=== PATIENT | male | born 1975 | race Caucasian/White ===

== ENCOUNTER 2017-05-25 09:13 | Emergency (ER) | payer BC, OTHER ==
[~2017-05-25] VITALS: Ht 182.9 cm; Wt 113.1 kg
[~2017-05-25 09:13] MED LIST: INDO-22 PO; LRT5 PO; OXYC-57 PO; ZFRODT4 SL
[2017-05-25 09:21] VITALS: TEMP 37.4; Ht 182.9 cm; Wt 113.1 kg
--- NOTE | 2017-05-25 09:38 | EMERGENCY ROOM VISIT NOTE ---
History Report prepared by Alicia: Sydnie Murphy Under the Supervision of: Dr. Nick Jack M.D. First contact with patient: 09:27 Chief Complaint: FLANK PAIN Stated Complaint: PAIN LOWER LEFT ABDOMEN AND LOWER NECK History of Present Illness The patient is a 42 year old male who presents to the Emergency Room with complaints of intermittent left lower flank pain beginning last night. The patient states that the pain also radiates to his lower back. The patient states that he had a kidney stone 10 years ago, and was having similar pain in the summer as well as trouble urinating. He states that he went to a urologist at [facility], and was told he had a cyst on his prostate. The patient denies burning with urination and he also denies blood in his urine. The patient states that his mother had diverticulitis. Source of History: patient Onset: last night Position: other (left-flank) Timing: intermittent Associated Symptoms: + back pain (lower), No urinary symptoms Review of Systems All systems have been listed, reviewed, and are negative other than those previously mentioned. Please see Additional Medical History Sheet. Past Medical & Surgical Medical Problems: (1) Prostatitis Family History Cancer Diabetes mellitus FH: diverticulitis Heart disease Hypertension Social History Smoking Status: Never Smoker Smokeless Tobacco Use: No Alcohol Use: occasionally Marital Status: Housing Status: lives with significant other Occupation Status: employed Current/Historical Medications Scheduled Allopurinol (Zyloprim), 300 MG PO QAM Ciprofloxacin Hcl (Cipro), 1 TAB PO BID Metronidazole (Flagyl), 500 MG PO TID Allergies Coded Allergies: No Known Allergies (Unverified , 05/25/17) Physical Exam Vital Signs Date Time Temp Pulse Resp B/P (MAP) Pulse Ox O2 Delivery O2 Flow Rate FiO2 05/25/17 12:36 65 18 143/92 98 Room Air 05/25/17 10:54 60 16 135/82 98 05/25/17 09:21 37.4 66 18 142/85 97 Room Air Physical Exam GENERAL: Patient awake, alert, oriented x 3. Patient follows commands. Patient does not appear toxic. Patient is adequately hydrated and well- nourished. SKIN: No erythema, pallor, cyanosis or rash HEENT: Normal head, pupils equal, reactive to light and accommodation. Ears normal. Oral cavity and posterior pharynx appear normal. Neck: Without adenopathy, no neck vein distention. LUNGS: Clear to auscultation. No wheezes, no rales, no rhonchi. HEART: No murmurs. No gallops. No rubs ABDOMEN: Marked tenderness in left lower quadrant with guarding, but no rebound. No masses, no hepatomegaly or splenomegaly. No inguinal hernia. EXTREMITIES: No signs of trauma or infection. NEUROLOGIC: Cranial nerves II-XII within normal limits. No gross motor sensory function deficits. Medical Decision & Procedures ER Provider Diagnostic Interpretation: Radiology results as stated below per my review and radiologist interpretation: ABD/PELVIS IV AND ORAL CONT CLINICAL HISTORY: 42 years-old Male presenting with LLQ pain. TECHNIQUE: Multidetector CT of the abdomen and pelvis was performed after the administration of oral and intravenous contrast. IV contrast: 120 mL of Optiray 320. A dose lowering technique was used consistent with the principles of ALARA (as low as reasonably achievable). COMPARISON: 09/23/2008. CT DOSE (mGy.cm): The estimated cumulative dose is 990.67 mGy.cm. FINDINGS: Technology Program Manager topogram: Unremarkable. Lung bases: Solid 3 mm nodule at the left lower lobe (series 3 image 72). Normal heart size. No pericardial or pleural effusion. Liver: Normal morphology. Hyperenhancing subcentimeter focus in the medial left hepatic lobe likely flash filling hemangioma (series 3 image 86) no other focal lesion. Patent hepatic vasculature. Biliary: No intrahepatic or extrahepatic biliary ductal dilatation. Normal gallbladder. Pancreas: Normal. Spleen: Normal. Adrenal glands: Normal. Kidneys and ureters: Normal. No hydronephrosis. Bladder: Incompletely evaluated secondary to underdistention. Pelvic organs: Prostate and seminal vesicles normal. Bowel: Focal wall thickening of the proximal sigmoid colon associated with diverticulosis and pericolonic fat stranding consistent with diverticulitis. Adjacent peritoneal thickening with small amount of retroperitoneal fluid extending to the extraperitoneal left hemipelvis, likely reactive. No focal fluid collection. No bowel obstruction. Peritoneal cavity: Trace free fluid in the left lower quadrant. No free intraperitoneal gas. Small retroperitoneal fluid as mentioned above. Lymph nodes: View scattered subcentimeter iliac lymph nodes bilaterally, likely reactive. No pathologically enlarged lymph nodes by CT size criteria. Vasculature: Aorta and IVC patent and normal in caliber. Abdominal wall: Small fat-containing umbilical hernia. Musculoskeletal: Normal. IMPRESSION: 1. Findings consistent with acute uncomplicated diverticulitis of the proximal sigmoid colon. No abscess or CT evidence of gregorio perforation. 2. Solid 3 mm left lower lobe pulmonary nodule. Follow-up per Leti Society 2017 recommendations below. Please refer to below summary of Fleischner Society 2017 recommendations for follow-up of incidental CT nodules (H Ce et al. Guidelines for management of incidental pulmonary nodules detected on CT images: From the Fleischner Society 2017. Radiology 2017; 284: 228-243.) SOLID NODULES Single nodule; size < 6 mm * Low risk patients: No routine follow-up * High risk patients: Optional CT at 12 months Single nodule; size 6-8 mm * Low risk patients: CT at 6-12 months, then consider CT at 18-24 months * High risk patients: CT at 6-12 months, then at 18-24 months Single nodule; size > 8 mm * Either low or high risk patients: Considered CT at 3 months, PET/CT, or tissue sampling Multiple nodules; size < 6 mm * Low risk patients: No routine follow up * High risk patients: Optional CT at 12 months Multiple nodules; size 6-8 mm * Low risk patients: CT at 3-6 months, then consider CT at 18-24 months * High risk patients: CT at 3-6 months, then at 18-24 months Multiple nodules; size > 8 mm * Low risk patients: CT at 3-6 months, then consider at 18-24 months * High risk patients: CT at 3-6 months, then at 18-24 months Note: These guidelines apply to incidental nodules. These guidelines do not apply to patients younger than 35 years, immunocompromised patients, or patients with cancer. * Low risk patients: Minimal or absent history of smoking and/or other known risk factors * High risk patients: History of smoking, exposure to other carcinogens, emphysema, fibrosis, upper lobe location, family history of lung cancer, etc. * If a nodule up to 8 mm is partly solid or is ground glass, further follow-up is required after 24 months to exclude possible slow growing adenocarcinoma. SUBSOLID NODULES Single ground-glass nodule * Nodule size < 6 mm: No routine follow-up * Nodule size > or = 6 mm: CT at 6-12 months to confirm persistence, then CT every 2 years until 5 years Single part-solid nodule * Nodule size < 6 mm: No routine follow-up * Nodules size > or = 6 mm: CT at 3-6 months to confirm persistence. If unchanged and solid component remains < 6 mm, annual CT should be performed for 5 years Multiple nodules * Nodule size < 6 mm: CT at 3-6 months. If stable, consider CT at 2 and 4 years. * Nodules size > or = 6 mm: CT at 3-6 months. Subsequent management based on the most suspicious nodule(s) Electronically signed by: Santiago Chou M.D. 05/25/2017 1:04 PM Dictated Date/Time: 05/25/2017 12:57 PM Laboratory Results 05/25/17 09:30 Red Blood Count 5.42, Mean Corpuscular Volume 83.8, Mean Corpuscular Hemoglobin 29.0, Mean Corpuscular Hemoglobin Concent 34.6, Mean Platelet Volume 10.1, Neutrophils (%) (Auto) 77.3, Lymphocytes (%) (Auto) 14.1, Monocytes (%) (Auto) 7.3, Eosinophils (%) (Auto) 0.8, Basophils (%) (Auto) 0.2, Neutrophils # (Auto) 10.51, Lymphocytes # (Auto) 1.92, Monocytes # (Auto) 1.00, Eosinophils # (Auto) 0.11, Basophils # (Auto) 0.03 05/25/17 09:30 Test 05/25/17 09:30 White Blood Count 13.61 K/uL (4.8-10.8) Red Blood Count 5.42 M/uL (4.7-6.1) Hemoglobin 15.7 g/dL (14.0-18.0) Hematocrit 45.4 % (42-52) Mean Corpuscular Volume 83.8 fL (80-100) Mean Corpuscular Hemoglobin 29.0 pg (25-34) Mean Corpuscular Hemoglobin Concent 34.6 g/dl (32-36) Platelet Count 265 K/uL (130-400) Mean Platelet Volume 10.1 fL (7.4-10.4) Neutrophils (%) (Auto) 77.3 % Lymphocytes (%) (Auto) 14.1 % Monocytes (%) (Auto) 7.3 % Eosinophils (%) (Auto) 0.8 % Basophils (%) (Auto) 0.2 % Neutrophils # (Auto) 10.51 K/uL (1.4-6.5) Lymphocytes # (Auto) 1.92 K/uL (1.2-3.4) Monocytes # (Auto) 1.00 K/uL (0.11-0.59) Eosinophils # (Auto) 0.11 K/uL (0-0.5) Basophils # (Auto) 0.03 K/uL (0-0.2) RDW Standard Deviation 41.0 fL (36.4-46.3) RDW Coefficient of Variation 13.6 % (11.5-14.5) Immature Granulocyte % (Auto) 0.3 % Immature Granulocyte # (Auto) 0.04 K/uL (0.00-0.02) Urine Color YELLOW Urine Appearance CLEAR (CLEAR) Urine pH 5.0 (4.5-7.5) Urine Specific [place] 1.021 (1.000-1.030) Urine Protein NEG (NEG) Urine Glucose (UA) NEG (NEG) Urine Ketones NEG (NEG) Urine Occult Blood NEG (NEG) Urine Nitrite NEG (NEG) Urine Bilirubin NEG (NEG) Urine Urobilinogen NEG (NEG) Urine Leukocyte Esterase NEG (NEG) Anion Gap 7.0 mmol/L (3-11) Est Creatinine Clear Calc Drug Dose 123.7 ml/min Estimated GFR () 106.4 Estimated GFR (Non- 91.8 BUN/Creatinine Ratio 15.7 (10-20) Calcium Level 9.1 mg/dl (8.5-10.1) Total Bilirubin 0.8 mg/dl (0.2-1) Aspartate Amino Transf (AST/SGOT) 21 U/L (15-37) Alanine Aminotransferase (ALT/SGPT) 45 U/L (12-78) Alkaline Phosphatase 186 U/L (45-117) Total Protein 8.2 gm/dl (6.4-8.2) Albumin 3.9 gm/dl (3.4-5.0) Globulin 4.3 gm/dl (2.5-4.0) Albumin/Globulin Ratio 0.9 (0.9-2) Lipase 115 U/L (73-393) Laboratory results as stated above per my review. ED Course 0931: Past medical records reviewed. The patient was evaluated in room B10. A complete history and physical examination was performed. 1150: I checked on the patient and he is doing the same. 1400: Upon reevaluation, the patient appeared to have improvement of his symptoms. I discussed today's findings with him. He verbalized agreement of the treatment plan. He was discharged home. Medical Decision Nurses notes reviewed. Medical history sheet reviewed. Differential diagnosis includes but is not limited to: prostatitis, UTI, kidney stone, diverticulitis, and bowel obstruction. Multiple labs and imaging were obtained. Please see above. White count is elevated. CT scan is consistent with diverticulitis which is also consistent with his history and physical exam. The patient will be started on ciprofloxacin and Flagyl. The patient was also found to have a small pulmonary nodule. He will be encouraged to follow-up with his family physician regarding that and the diverticulitis. He is at low risk for lung cancer. Medication Reconcilliation Current Medication List: was personally reviewed by me Blood Pressure Screening Patient's blood pressure: Elevated blood pressure Blood pressure disposition: Elevated BP felt to be situational Impression Primary Impression: Diverticulitis Additional Impression: Lung nodule < 6cm on CT Scribe Attestation The scribe's documentation has been prepared under my direction and personally reviewed by me in its entirety. I confirm that the note above accurately reflects all work, treatment, procedures, and medical decision making performed by me. Departure Information Dispostion Home / Self-Care Prescriptions Ciprofloxacin Hcl (CIPRO) 500 Mg Tab 1 TAB PO BID for 10 Days, #20 TAB Prov: Nick Jack M.D. 05/25/17 Metronidazole (Flagyl) 500 Mg Tab 500 MG PO TID for 10 Days, #30 TAB Prov: Nick Jack M.D. 05/25/17 Referrals No Doctor, Assigned (PCP) Forms HOME CARE DOCUMENTATION FORM, IMPORTANT VISIT INFORMATION Patient Instructions ED Diverticulitis, [facility] Additional Instructions 1 ciprofloxacin twice a day for 10 days. 1 Flagyl 3 times a day for 10 days. Do not drink any alcohol while on Flagyl. 650 mg of Tylenol every 4 hours as needed for pain. Follow-up with your family physician within the next 2 weeks. Return here sooner if your pain gets worse or you develop fever. Problem Qualifiers
[2017-05-25 09:53] LABS: URINE APPEARANCE CLEAR (CLEAR); URINE BILIRUBIN NEG (NEG); URINE COLOR YELLOW; URINE NITRITE NEG (NEG); URINE SPECIFIC GRAVITY 1.021 (1.000-1.030); UROBILINOGEN NEG (NEG); ZZUR CULT IF INDIC CLEAN CATCH NO
[2017-05-25 09:54] LABS: MANUAL MICROSCOPIC REQUIRED? NO; REVIEW REQ? NO
[2017-05-25] MEDS ORDERED: ALLO300T2 PO (09:56)
[2017-05-25 09:58] LABS: BASO % 0.2 %; BASO ABS # 0.03 K/uL (0-0.2); COMPLETE YES; EOS % 0.8 %; HEMATOCRIT 45.4 % (42-52); IG% 0.3 %; LYMPH % 14.1 %; LYMPH ABS # 1.92 K/uL (1.2-3.4); MEAN CELL VOLUME 83.8 fL (80-100); MEAN CORPUSCULAR HGB CONC 34.6 g/dl (32-36); MEAN PLATELET VOLUME 10.1 fL (7.4-10.4); MONO % 7.3 %; NEUT % 77.3 %; PLATELET COUNT 265 K/uL (130-400); RED BLOOD COUNT 5.42 M/uL (4.7-6.1); WHITE BLOOD COUNT 13.61 K/uL (4.8-10.8)
[2017-05-25 10:16] LABS: BUN/CREATININE RATIO 15.7 (10-20); CALCIUM 9.1 mg/dl (8.5-10.1)
[2017-05-25 10:19] LABS: ALB/GLOB RATIO 0.9 (0.9-2)
[2017-05-25] MEDS ORDERED: OPTIRAY 320 IV PRN (11:00)
--- NOTE | 2017-05-25 13:05 | DIAGNOSTIC IMAGING REPORT ---
ABD/PELVIS IV AND ORAL CONT CLINICAL HISTORY: 42 years-old Male presenting with LLQ pain. TECHNIQUE: Multidetector CT of the abdomen and pelvis was performed after the administration of oral and intravenous contrast. IV contrast: 120 mL of Optiray 320. A dose lowering technique was used consistent with the principles of ALARA (as low as reasonably achievable). COMPARISON: 09/23/2008. CT DOSE (mGy.cm): The estimated cumulative dose is 990.67 mGy.cm. FINDINGS: Bus Aide topogram: Unremarkable. Lung bases: Solid 3 mm nodule at the left lower lobe (series 3 image 72). Normal heart size. No pericardial or pleural effusion. Liver: Normal morphology. Hyperenhancing subcentimeter focus in the medial left hepatic lobe likely flash filling hemangioma (series 3 image 86) no other focal lesion. Patent hepatic vasculature. Biliary: No intrahepatic or extrahepatic biliary ductal dilatation. Normal gallbladder. Pancreas: Normal. Spleen: Normal. Adrenal glands: Normal. Kidneys and ureters: Normal. No hydronephrosis. Bladder: Incompletely evaluated secondary to underdistention. Pelvic organs: Prostate and seminal vesicles normal. Bowel: Focal wall thickening of the proximal sigmoid colon associated with diverticulosis and pericolonic fat stranding consistent with diverticulitis. Adjacent peritoneal thickening with small amount of retroperitoneal fluid extending to the extraperitoneal left hemipelvis, likely reactive. No focal fluid collection. No bowel obstruction. Peritoneal cavity: Trace free fluid in the left lower quadrant. No free intraperitoneal gas. Small retroperitoneal fluid as mentioned above. Lymph nodes: View scattered subcentimeter iliac lymph nodes bilaterally, likely reactive. No pathologically enlarged lymph nodes by CT size criteria. Vasculature: Aorta and IVC patent and normal in caliber. Abdominal wall: Small fat-containing umbilical hernia. Musculoskeletal: Normal. IMPRESSION: 1. Findings consistent with acute uncomplicated diverticulitis of the proximal sigmoid colon. No abscess or CT evidence of gregorio perforation. 2. Solid 3 mm left lower lobe pulmonary nodule. Follow-up per Leti Society 2017 recommendations below. Please refer to below summary of Fleischner Society 2017 recommendations for follow-up of incidental CT nodules (Christelle Encinas et al. Guidelines for management of incidental pulmonary nodules detected on CT images: From the Fleischner Society 2017. Radiology 2017; 284: 228-243.) SOLID NODULES Single nodule; size < 6 mm * Low risk patients: No routine follow-up * High risk patients: Optional CT at 12 months Single nodule; size 6-8 mm * Low risk patients: CT at 6-12 months, then consider CT at 18-24 months * High risk patients: CT at 6-12 months, then at 18-24 months Single nodule; size > 8 mm * Either low or high risk patients: Considered CT at 3 months, PET/CT, or tissue sampling Multiple nodules; size < 6 mm * Low risk patients: No routine follow up * High risk patients: Optional CT at 12 months Multiple nodules; size 6-8 mm * Low risk patients: CT at 3-6 months, then consider CT at 18-24 months * High risk patients: CT at 3-6 months, then at 18-24 months Multiple nodules; size > 8 mm * Low risk patients: CT at 3-6 months, then consider at 18-24 months * High risk patients: CT at 3-6 months, then at 18-24 months Note: These guidelines apply to incidental nodules. These guidelines do not apply to patients younger than 35 years, immunocompromised patients, or patients with cancer. * Low risk patients: Minimal or absent history of smoking and/or other known risk factors * High risk patients: History of smoking, exposure to other carcinogens, emphysema, fibrosis, upper lobe location, family history of lung cancer, etc. * If a nodule up to 8 mm is partly solid or is ground glass, further follow-up is required after 24 months to exclude possible slow growing adenocarcinoma. SUBSOLID NODULES Single ground-glass nodule * Nodule size < 6 mm: No routine follow-up * Nodule size > or = 6 mm: CT at 6-12 months to confirm persistence, then CT every 2 years until 5 years Single part-solid nodule * Nodule size < 6 mm: No routine follow-up * Nodules size > or = 6 mm: CT at 3-6 months to confirm persistence. If unchanged and solid component remains < 6 mm, annual CT should be performed for 5 years Multiple nodules * Nodule size < 6 mm: CT at 3-6 months. If stable, consider CT at 2 and 4 years. * Nodules size > or = 6 mm: CT at 3-6 months. Subsequent management based on the most suspicious nodule(s) Electronically signed by: Santiago Chou M.D. 05/25/2017 1:04 PM Dictated Date/Time: 05/25/2017 12:57 PM
[2017-05-25] MEDS ORDERED: METR-163 PO (13:57)
[2017-05-25] MEDS ORDERED: CIPR-255 PO (13:57)
[2017-05-25 14:16] VITALS: BP 138/83; PULSE 62; O2SAT 98
== END 2017-05-25 14:16 | disposition home or self-care (01) ==
LOC: C.EDB 09:15
DX: K57.92 Diverticulitis of intestine, part unspecified, without perforation or abscess without bleeding (principal); R91.8 Other nonspecific abnormal finding of lung field; Z87.442 Personal history of urinary calculi; Z83.3 Family history of diabetes mellitus; Z82.49 Family history of ischemic heart disease and other diseases of the circulatory system; Z83.79 Family history of other diseases of the digestive system